=== PATIENT | female | born 1945 | race Two or more races ===

== ENCOUNTER 2018-06-13 18:36 | Emergency (ER) | payer MEDICARE, MEDICAID ==
[~2018-06-13] VITALS: Ht 157.5 cm; Wt 60.6 kg
[2018-06-13 20:02] LABS: BASOPHILS % 1.4 % (0.0-2.0); EOSINOPHILS % 1.5 % (0.0-5.0); HEMATOCRIT. 36.7 % (36.0-48.0); HEMOGLOBIN. 12.7 g/dL (12.0-16.0); LYMPHOCYTES % 29.9 % (20.0-50.0); MEAN CORPUSCULAR HEMOGLOBIN 30.4 pg (28.0-32.0); MEAN CORPUSCULAR VOLUME 87.8 fL (81.0-99.0); MEAN PLATELET VOLUME 7.5 fl (7.4-10.4); MONOCYTES % 7.1 % (2.0-8.0); NEUTROPHILS % 60.1 % (40.0-76.0); PLATELET 284 x1000/uL (130-400); RED BLOOD CELL COUNT 4.19 mill/uL (4.2-5.4); RED CELL DISTRIBUTION WIDTH 13.8 % (11.6-14.6)
[2018-06-13 20:07] LABS: CHLORIDE 104 mEq/L (98-107)
[2018-06-13 21:23] LABS: CLARITY URINE CLEAR (CLEAR); COLOR URINE YELLOW (YELLOW); KETONES URINE NEGATIVE (NEGATIVE); LEUKOCYTE ESTERASE URINE 2+ (NEGATIVE); NITRITE URINE NEGATIVE (NEGATIVE); OCCULT BLOOD URINE TRACE (NEGATIVE); PROTEIN URINE NEGATIVE (NEGATIVE); SPECIFIC GRAVITY URINE 1.009 (1.005-1.030); UROBILINOGEN URINE 0.2 E.U./dL (0.2-1.0)
[2018-06-13 21:44] LABS: *AMPHETAMINES SCREEN URINE NEGATIVE (NEGATIVE); *BARBITURATES SCREEN URINE NEGATIVE (NEGATIVE); *BENZODIAZEPINES SCREEN URINE NEGATIVE (NEGATIVE); *COCAINE SCREEN URINE NEGATIVE (NEGATIVE); METHADONE URINE SCREEN NEGATIVE (NEGATIVE)
[2018-06-13 21:45] LABS: CANNABINOID URINE SCREEN NEGATIVE (NEGATIVE); OPIATES URINE SCREEN NEGATIVE (NEGATIVE); PHENCYCLIDINE URINE SCREEN NEGATIVE (NEGATIVE)
[2018-06-13 22:32] VITALS: BP 110/60
== END 2018-06-13 22:34 | disposition home or self-care (01) ==
LOC: ER 18:36
DX: S06.0X9A Concussion with loss of consciousness of unspecified duration, initial encounter (principal); N39.0 Urinary tract infection, site not specified; R42 Dizziness and giddiness; I10 Essential (primary) hypertension; R00.0 Tachycardia, unspecified; G47.00 Insomnia, unspecified; W01.10XA Fall on same level from slipping, tripping and stumbling with subsequent striking against unspecified object, initial encounter; Y93.9 Activity, unspecified; Y92.9 Unspecified place or not applicable; Z91.010 Allergy to peanuts; Z91.018 Allergy to other foods
CPT/HCPCS: 36415; 70450; 71045; 80053; 80305; 81003; 84484; 85025; 85610; 93005; 99285

== ENCOUNTER 2018-11-25 13:12 | Emergency (ER) | payer BC, MEDICAID ==
[~2018-11-25] VITALS: Ht 154.9 cm; Wt 68.5 kg
[2018-11-25 13:31] VITALS: BP 148/78
[2018-11-25] MEDS ORDERED: ALEVE (13:31)
[2018-11-25] MEDS ORDERED: BENADRYL (13:31)
== END 2018-11-25 18:12 | disposition left against medical advice (07) ==
LOC: ER 13:12
DX: R07.89 Other chest pain (principal); R42 Dizziness and giddiness; Z53.21 Procedure and treatment not carried out due to patient leaving prior to being seen by health care provider
CPT/HCPCS: 82962; 93005